=== PATIENT | female | born 1960 | race Caucasian/White ===

== ENCOUNTER 2020-12-18 05:01 | Observation (INO) ==
[2020-12-18 05:26] LABS: Basophils % 0.3 %; Eosinophils # 0.2 K/mcL (0.0-0.6); Eosinophils % 1.6 %; Hematocrit 41.2 % (35.3-44.9); Immature Granulocytes % 0.3 % (0-4); Lymphocytes # 2.9 K/mcL (0.6-4.6); Lymphocytes % 30.9 %; Mean Corpuscular Hemoglobin 29.9 pg (28.0-33.3); Mean Platelet Volume 9.8 fL (9.4-12.4); Monocytes % 10.6 %; Neutrophils # 5.2 K/mcL (1.6-8.9); Platelet Count 321 K/mcL (140-400); Red Blood Count 4.68 M/mcL (3.82-4.97); Red Cell Distribution Width 12.8 % (11.5-14.5); Segmented Neutrophils % 56.3 %; White Blood Count 9.3 K/mcL (4.3-11.1)
[2020-12-18] MEDS ORDERED: Aspirin 81 MG TAB.CHEW PO ONE (05:30)
[2020-12-18] MEDS: Nitroglycerin 0.4 MG TAB.SUBL SL SCH ×3 (05:43→06:02)
[2020-12-18 05:47] LABS: Alanine Aminotransferase 20 Units/L (7-52); Albumin 4.5 g/dL (3.5-5.7); Albumin/Globulin Ratio 1.7 (1.1-2.2); Alkaline Phosphatase 97 Units/L (34-104); Aspartate Amino Transferase 18 Units/L (13-39); BUN/Creatinine Ratio 43 (6-26); Bilirubin,Total 0.6 mg/dL (0.3-1.0); Blood Urea Nitrogen 22 mg/dL (8-23); Calcium 9.4 mg/dL (8.6-10.3); Carbon Dioxide 24 mEq/L (23-29); Chloride 106 mEq/L (98-107); Globulin 2.7 g/dL (2.4-3.5); Glucose 125 mg/dL (70-105); Osmolality,Calculated 291 (280-300); Potassium 3.6 mEq/L (3.5-5.1); Sodium 138 mEq/L (136-145); Total Protein 7.2 g/dL (6.4-8.9); eGFR For African Americans > 60 (> 60); eGFR For Non-African Americans > 60 (> 60)
[2020-12-18 05:51] LABS: Troponin I 0.18 ng/mL (< 0.04)
[2020-12-18] MEDS ORDERED: *HR* Heparin 5,000 UNIT/ML VIAL IVP PRN ×2 (05:56)
[2020-12-18] MEDS ORDERED: *HR* Heparin 5,000 UNIT/ML VIAL IVP ONE (05:56)
[2020-12-18 06:09] LABS: Heparin anti-factor XA UFH < 0.04 IU/mL (0.30-0.70)
[2020-12-18 06:10] LABS: INR 0.9; Prothrombin Time 10.3 Seconds (9.4-12.1)
[2020-12-18] MEDS: Heparin 25,000UNIT/250ML 1/2NS 25,000 UNIT/250 ML IV.SOLN IVC SCH (06:10)
[2020-12-18 07:32] LABS: Adenovirus Not Detected (Not Detect); Bordetella Pertussis Not Detected (Not Detect); Chlamydophila pneumoniae Not Detected (Not Detect); Coronavirus 229E Not Detected (Not Detect); Coronavirus HKU1 Not Detected (Not Detect); Coronavirus NL63 Not Detected (Not Detect); Coronavirus OC43 Not Detected (Not Detect); Human Metapneumovirus Not Detected (Not Detect); Human Rhinovirus/Enterovirus Not Detected (Not Detect); Influenza A Subtype 2009 H1 Not Detected (Not Detect); Influenza B Not Detected (Not Detect); Mycoplasma pneumoniae Not Detected (Not Detect); Parainfluenza Virus 1 Not Detected (Not Detect); Parainfluenza Virus 2 Not Detected (Not Detect); Parainfluenza Virus 3 Not Detected (Not Detect); Parainfluenza Virus 4 Not Detected (Not Detect); Respiratory Syncytial Virus Not Detected (Not Detect); SARS-CoV-2 DETECTED (Not Detect)
[2020-12-18] MEDS ORDERED: Ondansetron 4 MG/2 ML VIAL IVP PRN (07:46)
[2020-12-18] MEDS ORDERED: Naloxone 0.4 MG/ML INJ IVP PRN (07:46)
[2020-12-18] MEDS ORDERED: Nitroglycerin 0.4 MG TAB.SUBL SL PRN (07:48)
[2020-12-18] MEDS ORDERED: Perflutren Lipid Microsphere 1.3 ML in 0.9 % Sodium Chloride 8.7 ML IVP PRN (07:48)
[2020-12-18] MEDS ORDERED: *HR* Labetalol 20 MG/4 ML SYRINGE IVP PRN (07:49)
[2020-12-18] MEDS: Latanoprost 2.5 ML BOTTLE BOTH EYES SCH (21:13)
[2020-12-19 04:54] LABS: Basophils % 0.4 %; Eosinophils # 0.1 K/mcL (0.0-0.6); Eosinophils % 1.6 %; Hematocrit 38.1 % (35.3-44.9); Hemoglobin 12.6 g/dL (11.5-15.4); Immature Granulocytes % 0.3 % (0-4); Lymphocytes # 2.9 K/mcL (0.6-4.6); Mean Corpuscular HGB Conc 33.1 g/dL (31.6-35.5); Mean Corpuscular Hemoglobin 29.8 pg (28.0-33.3); Mean Corpuscular Volume 90.1 fL (83.0-100.0); Mean Platelet Volume 9.9 fL (9.4-12.4); Monocytes # 0.7 K/mcL (0.0-1.3); Monocytes % 9.3 %; Neutrophils # 3.6 K/mcL (1.6-8.9); Platelet Count 267 K/mcL (140-400); Red Blood Count 4.23 M/mcL (3.82-4.97); Red Cell Distribution Width 12.9 % (11.5-14.5); Segmented Neutrophils % 49.4 %; White Blood Count 7.4 K/mcL (4.3-11.1)
[2020-12-19] MEDS: Heparin 25,000UNIT/250ML 1/2NS 25,000 UNIT/250 ML IV.SOLN IVC SCH (05:06)
[2020-12-19 05:15] LABS: BUN/Creatinine Ratio 33 (6-26); Blood Urea Nitrogen 18 mg/dL (8-23); Carbon Dioxide 26 mEq/L (23-29); Chloride 107 mEq/L (98-107); Chol/HDL Ratio 3.3 (0-4.9); Cholesterol 171 mg/dL (< 200); Glucose 114 mg/dL (70-105); HDL Cholesterol 52 mg/dL (40-59); LDL Cholesterol,Calculated 102 mg/dL (< 100); Magnesium 1.9 mg/dL (1.6-2.6); Osmolality,Calculated 291 (280-300); Potassium 4.4 mEq/L (3.5-5.1); Sodium 139 mEq/L (136-145); Triglycerides 85 mg/dL (< 150); eGFR For African Americans > 60 (> 60); eGFR For Non-African Americans > 60 (> 60)
[2020-12-19] MEDS: Acetaminophen 325 MG TABLET PO PRN ×2 (09:00→20:06)
[2020-12-19] MEDS: Aspirin 81 MG TAB.CHEW PO SCH (09:01)
[2020-12-19] MEDS ORDERED: carvediloL 6.25 MG TABLET PO SCH (11:00)
[2020-12-19 11:35] LABS: Estimated Average Glucose 120 mg/dl; Hemoglobin A1C 5.8 %
[2020-12-19] MEDS ORDERED: Isosorbide MONOnitrate (24 HR) 30 MG TAB.ER.24H PO SCH (12:15)
[2020-12-19] MEDS ORDERED: *HR* FentaNYL (PF) 100 MCG/2 ML VIAL ONE (15:13)
[2020-12-19] MEDS ORDERED: *HR* Heparin 10,000 UNIT/10 ML VIAL ONE (15:14)
[2020-12-19] MEDS ORDERED: ISOVUE-370 200 ML INFUS..BTL ONE ×2 (15:14→16:19)
[2020-12-19] MEDS ORDERED: Heparin 1,000 UNITS/500 mL 500 ML ONE (15:14)
[2020-12-19] MEDS ORDERED: *HR* Midazolam HCl 2 MG/2 ML VIAL ONE (15:14)
[2020-12-19] MEDS ORDERED: 0.9 % Sodium Chloride 2,000 ML ONE (15:15)
[2020-12-19] MEDS ORDERED: Nitroglycerin 1,000 MCG/10 ML VIAL IV ONE (15:15)
[2020-12-19] MEDS ORDERED: *HR* Ticagrelor 90 MG TABLET ONE (16:17)
[2020-12-19] MEDS ORDERED: Nitroglycerin Spray 4.9 GM BOTTLE ONE (16:49)
[2020-12-19] MEDS: carvediloL 6.25 MG TABLET PO SCH (18:01)
[2020-12-19] MEDS: 0.9 % Sodium Chloride 1,000 ML IVC SCH ×2 (18:08→21:05)
[2020-12-19] MEDS: *HR* Ticagrelor 90 MG TABLET PO SCH (20:07)
[2020-12-19] MEDS: Latanoprost 2.5 ML BOTTLE BOTH EYES SCH (20:12)
[2020-12-20 06:05] LABS: Hematocrit 34.3 % (35.3-44.9); Hemoglobin 11.3 g/dL (11.5-15.4); Mean Corpuscular HGB Conc 32.9 g/dL (31.6-35.5); Mean Corpuscular Hemoglobin 29.4 pg (28.0-33.3); Mean Corpuscular Volume 89.1 fL (83.0-100.0); Platelet Count 239 K/mcL (140-400); Red Blood Count 3.85 M/mcL (3.82-4.97); White Blood Count 7.5 K/mcL (4.3-11.1)
[2020-12-20 06:17] LABS: BUN/Creatinine Ratio 41 (6-26); Blood Urea Nitrogen 19 mg/dL (8-23); Calcium 8.4 mg/dL (8.6-10.3); Carbon Dioxide 22 mEq/L (23-29); Chloride 112 mEq/L (98-107); Glucose 107 mg/dL (70-105); Osmolality,Calculated 293 (280-300); Sodium 140 mEq/L (136-145); eGFR For African Americans > 60 (> 60); eGFR For Non-African Americans > 60 (> 60)
[2020-12-20 06:18] LABS: BUN/Creatinine Ratio 40 (6-26); Blood Urea Nitrogen 19 mg/dL (8-23); eGFR For African Americans > 60 (> 60); eGFR For Non-African Americans > 60 (> 60)
[2020-12-20 08:50] VITALS: BP 150/85
[2020-12-20] MEDS: Aspirin 81 MG TAB.CHEW PO SCH (08:55)
[2020-12-20] MEDS: *HR* Ticagrelor 90 MG TABLET PO SCH (08:55)
[2020-12-20] MEDS: carvediloL 6.25 MG TABLET PO SCH (08:55)
== END 2020-12-20 10:20 | disposition home or self-care (01) ==
LOC: EMEROOARM 05:01 → 2NENU 05:01
PROVIDERS: ADMIT Internal Medicine; ATTEND Internal Medicine

== ENCOUNTER 2020-12-20 14:14 | Observation (INO) ==
[2020-12-20] MEDS ORDERED: Nitroglycerin 0.4 MG TAB.SUBL SL PRN (14:26)
[2020-12-20] MEDS ORDERED: Aspirin 81 MG TAB.CHEW PO ONE (14:26)
[2020-12-20] MEDS ORDERED: DilTIAZem 50 MG/50 ML IV.SOLN IVC SCH (14:30)
[2020-12-20 15:22] LABS: Troponin I 0.57 ng/mL (< 0.04)
[2020-12-20 15:24] LABS: Basophils % 0.3 %; Eosinophils # 0.1 K/mcL (0.0-0.6); Eosinophils % 1.2 %; Hematocrit 39.4 % (35.3-44.9); Immature Granulocytes % 0.5 % (0-4); Lymphocytes # 2.1 K/mcL (0.6-4.6); Lymphocytes % 19.4 %; Mean Corpuscular HGB Conc 33.8 g/dL (31.6-35.5); Mean Corpuscular Hemoglobin 29.8 pg (28.0-33.3); Mean Corpuscular Volume 88.1 fL (83.0-100.0); Mean Platelet Volume 10.5 fL (9.4-12.4); Monocytes # 0.9 K/mcL (0.0-1.3); Monocytes % 8.5 %; Neutrophils # 7.7 K/mcL (1.6-8.9); Platelet Count 316 K/mcL (140-400); Red Blood Count 4.47 M/mcL (3.82-4.97); Red Cell Distribution Width 12.8 % (11.5-14.5); Segmented Neutrophils % 70.1 %
[2020-12-20 15:28] LABS: Activated Partial Thrombo Time 23.9 Seconds (26.0-36.0)
[2020-12-20 15:29] LABS: Hemoglobin 13.3 g/dL (11.5-15.4)
[2020-12-20 15:36] LABS: BUN/Creatinine Ratio 35 (6-26); Blood Urea Nitrogen 17 mg/dL (8-23); Carbon Dioxide 20 mEq/L (23-29); Chloride 111 mEq/L (98-107); Glucose 112 mg/dL (70-105); Osmolality,Calculated 298 (280-300); Potassium 4.2 mEq/L (3.5-5.1); Sodium 143 mEq/L (136-145); eGFR For African Americans > 60 (> 60); eGFR For Non-African Americans > 60 (> 60)
[2020-12-20] MEDS ORDERED: *HR* Metoprolol 5 MG/5 ML VIAL IVP ONE ×2 (15:49→15:50)
[2020-12-20] MEDS ORDERED: Amiodarone Premix 150 MG/100 ML BAG IVPB ONE ×2 (15:50→15:55)
[2020-12-20] MEDS ORDERED: *HR* Heparin 5,000 UNIT/ML VIAL IVP ONE (15:55)
[2020-12-20] MEDS ORDERED: *HR* Heparin 5,000 UNIT/ML VIAL IVP PRN ×2 (15:55)
[2020-12-20] MEDS ORDERED: Heparin 25,000UNIT/250ML 1/2NS 25,000 UNIT/250 ML IV.SOLN IVC SCH (16:00)
[2020-12-20] MEDS ORDERED: Amiodarone Premix 360 MG/200 ML BAG IVC ONE (16:09)
[2020-12-20] MEDS ORDERED: Naloxone 0.4 MG/ML INJ IVP PRN (16:51)
[2020-12-20] MEDS: carvediloL 6.25 MG TABLET PO SCH (19:52)
[2020-12-20] MEDS: *HR* Ticagrelor 90 MG TABLET PO SCH (19:52)
[2020-12-20] MEDS: Amiodarone Premix 360 MG/200 ML BAG IVC SCH (21:43)
[2020-12-21 06:01] LABS: Hematocrit 33.9 % (35.3-44.9); Mean Corpuscular HGB Conc 33.6 g/dL (31.6-35.5); Mean Corpuscular Hemoglobin 30.2 pg (28.0-33.3); Mean Corpuscular Volume 89.7 fL (83.0-100.0); Mean Platelet Volume 10.4 fL (9.4-12.4); Platelet Count 252 K/mcL (140-400); Red Blood Count 3.78 M/mcL (3.82-4.97); Red Cell Distribution Width 13.1 % (11.5-14.5); White Blood Count 9.8 K/mcL (4.3-11.1)
[2020-12-21 06:02] LABS: Hemoglobin 11.4 g/dL (11.5-15.4)
[2020-12-21 06:20] LABS: BUN/Creatinine Ratio 42 (6-26); Blood Urea Nitrogen 25 mg/dL (8-23); Calcium 8.8 mg/dL (8.6-10.3); Carbon Dioxide 24 mEq/L (23-29); Chloride 111 mEq/L (98-107); Glucose 110 mg/dL (70-105); Magnesium 1.8 mg/dL (1.6-2.6); Osmolality,Calculated 297 (280-300); Potassium 3.7 mEq/L (3.5-5.1); Sodium 141 mEq/L (136-145); eGFR For African Americans > 60 (> 60); eGFR For Non-African Americans > 60 (> 60)
[2020-12-21] MEDS: *HR* Ticagrelor 90 MG TABLET PO SCH (07:47)
[2020-12-21] MEDS: carvediloL 6.25 MG TABLET PO SCH ×2 (07:48→17:08)
[2020-12-21] MEDS ORDERED: carvediloL 6.25 MG TABLET PO SCH (09:00)
[2020-12-21] MEDS ORDERED: Furosemide 20 MG TABLET PO SCH (09:00)
[2020-12-21] MEDS ORDERED: Aspirin Enteric Coated 81 MG Tablet PO SCH (09:00)
[2020-12-21] MEDS: Amiodarone Premix 360 MG/200 ML BAG IVC SCH (10:08)
[2020-12-21] MEDS ORDERED: Apixaban 5 MG TABLET PO SCH (10:48)
[2020-12-21 16:58] VITALS: BP 116/72
== END 2020-12-21 17:45 | disposition home or self-care (01) ==
LOC: 2NNU 14:14 → EMEROOARM 14:14 → SUATTDRO 17:23 → 2NNU 18:00
PROVIDERS: ADMIT Internal Medicine; ATTEND Internal Medicine